=== PATIENT | female | born 1965 ===

== ENCOUNTER 2022-07-09 10:01 | Emergency (ER) | payer BC, SELFPAY ==
[2022-07-09 10:04] VITALS: BP 184/93; PULSE 68; RESP 18; TEMP 36.8; O2SAT 100; BMI 36.8
--- NOTE | 2022-07-09 10:25 | ED_ITS ---
HPI - General Adult General Chief complaint: Epistaxis/Nosebleed Stated complaint: Nosebleed Time Seen by Provider: 07/09/22 10:22 Source: patient Mode of arrival: ambulatory Limitations: no limitations History of Present Illness HPI narrative: 57-year-old female coming in today concerned about epistaxis. Patient states that she has been driving up from [place] to go to [place] and her nose started bleeding suddenly. She states that it was bleeding for about 20 minutes she could get it to stop, so she came to the ER. Fortunately, by the time she arrived here her nose had stopped bleeding. She is not on any blood thinners. She does have history of high blood pressure for which she takes losartan. She also has a history of depression. She is on a daily baby aspirin. She denies feeling dizzy or lightheaded. No headaches. She states that she stopped her nose with some tissues and finally stopped. Related Data Home Medications Medication Instructions Recorded Confirmed aspirin 81 mg chewable tablet 81 mg PO DAILY 07/09/22 07/09/22 bupropion HCl 150 mg tablet,12 hr 150 mg PO DAILY 07/09/22 07/09/22 sustained-release escitalopram oxalate 20 mg tablet 30 mg PO DAILY 07/09/22 07/09/22 losartan 50 mg tablet (Cozaar) 50 mg PO DAILY 07/09/22 07/09/22 ropinirole 2 mg tablet 2 mg PO DAILY 07/09/22 07/09/22 semaglutide 1 mg/dose (2 mg/1.5 1 mg subcut QWEEK 07/09/22 07/09/22 mL) subcutaneous pen injector (Ozempic) Allergies Allergy/AdvReac Type Severity Reaction Status Date / Time No Known Drug Allergies Allergy Verified 07/09/22 10:10 Review of Systems Status of ROS: Reports: 6 or more systems reviewed and unremarkable except as noted in History and below PFS PFS Social History Smoking Status: Never smoker Do you use any of these nicotine containing products: None Second hand tobacco smoke exposure: No How often do you have a drink containing alcohol: 2-4 times a month How many standard drinks containing alcohol do you have on a typical day: 1 or 2 How often do you have six or more drinks on one occasion: Never AUDIT-C Alcohol total score: 2 Non-prescribed substance use: denies use Exam Narrative: Exam Narrative: Overweight, well-developed patient in no acute distress but is a little anxious. Alert and oriented. Answers questions appropriately. Mood and affect are appropriate. Thoughts are goal oriented and rational. No tangential or magical thinking noted. Patient speaks in full sentences without needing to catch her breath. No active bleeding noted. HEENT: Normocephalic atraumatic. Pupils are equally round reactive to light. Extraocular muscles are intact. Conjunctivae are moist without any icterus noted. Moist mucous membranes. Posterior Skin: Well perfused without any obvious rashes, no pallor appreciated. Const: Vital Signs, click to edit/add: Vital Signs - 24 hr 07/09/22 10:04 Temperature 98.3 F Pulse Rate [Pulse Oximeter] 68 Respiratory Rate 18 Blood Pressure [Le ft Upper Arm] 184/93 H Pulse Oximetry 100 Oxygen Delivery Me thod Room Air Course Vital Signs Vital signs: Initial Vital Signs Temperature 98.3 F 07/09/22 10:04 Temperature Source Temporal Artery Scan 07/09/22 10:04 Pulse Rate 68 07/09/22 10:04 Respiratory Rate 18 07/09/22 10:04 Blood Pressure 184/93 H 07/09/22 10:04 Blood Pressure Mean 123 07/09/22 10:04 Blood Pressure Position Sitting 07/09/22 10:04 Pulse Oximetry 100 07/09/22 10:04 Oxygen Delivery Method 07/09/22 10:04 Vital Signs Temperature 98.3 F 07/09/22 10:04 Pulse Rate 68 07/09/22 10:04 Respiratory Rate 18 07/09/22 10:04 Blood Pressure 184/93 H 07/09/22 10:04 Pulse Oximetry 100 07/09/22 10:04 Oxygen Delivery Method 07/09/22 10:04 Temperature 98.3 F 07/09/22 10:04 Pulse Rate 68 07/09/22 10:04 Respiratory Rate 18 07/09/22 10:04 Blood Pressure 184/93 H 07/09/22 10:04 Pulse Oximetry 100 07/09/22 10:04 Oxygen Delivery Method 07/09/22 10:04 Medical Decision Making MDM Narrative Medical decision making narrative: 57-year-old female with epistaxis now resolved. We discussed applying pressure to the nose from the outside instead of stuffing it from the inside should this happen again in his certainly can. We discussed putting very small amount of Vaseline on the nasal septum. We discussed reasons for follow-up. Patient was agreeable and had no other questions. Discharge Plan Discharge Clinical Impression: Epistaxis Patient Disposition: Home, Self-Care Condition: Improved Additional Instructions: Avoid blowing your nose for the next 1-2 days. You can put a very small amount of Vaseline, smaller than the size of a pea, on the tip of your finger and gently rubbed the inside of your nose to coat the nose. Should your nose starts to bleed again apply pressure from the outside for 10 minutes, do not stuff things into the nose. Prescriptions: No Action losartan [Cozaar] 50 mg tablet 50 mg PO DAILY escitalopram oxalate 20 mg tablet 30 mg PO DAILY bupropion HCl 150 mg tablet sustained-release 12 hr 150 mg PO DAILY ropinirole 2 mg tablet 2 mg PO DAILY aspirin 81 mg tablet,chewable 81 mg PO DAILY Ozempic 1 mg/dose (2 mg/1.5 mL) pen injector 1 mg subcut QWEEK Stand Alone Forms: MyHealth Info Instructions
[2022-07-09 10:38] VITALS: BP 148/96; PULSE 73; RESP 20; O2SAT 96
== END 2022-07-09 10:51 | disposition home or self-care (01) ==
LOC: ED 10:49
PROVIDERS: Emergency Provider Family Medicine
DX: R04.0 Epistaxis (principal)
CPT/HCPCS: 99283